=== PATIENT | female | born 1990 | race Two or more races ===

== ENCOUNTER → 2020-03-15 | Outpatient (CLI) | payer SELFPAY | LOC: M LABSMTC 11:38 | PROVIDERS: ATTEND Pediatrics | DX: Z20.828 Contact with and (suspected) exposure to other viral communicable diseases (principal) ==

== ENCOUNTER 2020-08-03 06:38 | Emergency (ER) | payer OTHER, SELFPAY ==
[~2020-08-03] VITALS: Ht 175.3 cm; Wt 88.1 kg
[2020-08-03] MEDS ORDERED: NS 1,000 ML IV ONE (07:25)
[2020-08-03 08:11] LABS: BASO % 0.9 % (0.0-1.0); EOS # 0.1 10^3/uL (0.0-0.5); EOS % 2.8 % (0.0-3.0); HEMOGLOBIN 12.3 g/dl (12.0-15.5); LYMPH # 1.1 10^3/uL (1.5-5.0); LYMPH % 23.6 % (24.0-44.0); MEAN CORPUSCULAR HGB CONC 31.5 g/dl (32.0-36.5); MONO # 0.5 10^3/uL (0.0-0.8); MONO % 11.5 % (2.0-8.0); NEUTROPHILS # 2.9 10^3/uL (1.5-8.5); PLATELET COUNT, AUTOMATED 353 10^3/uL (150-450); RED BLOOD COUNT 4.24 10^6/uL (4.00-5.40); WHITE BLOOD COUNT 4.7 10^3/uL (4.0-10.0)
[2020-08-03 08:41] LABS: ALBUMIN 3.6 GM/DL (3.2-5.2); ALT/SGPT 18 U/L (12-78); BILIRUBIN,DIRECT 0.2 MG/DL (0.0-0.2); BILIRUBIN,TOTAL 0.4 MG/DL (0.2-1.0); BLOOD UREA NITROGEN 14 MG/DL (7-18); CALCIUM LEVEL 8.9 MG/DL (8.5-10.1); CARBON DIOXIDE LEVEL 31 MEQ/L (21-32); CHLORIDE LEVEL 107 MEQ/L (98-107); CREATININE FOR GFR 1.05 MG/DL (0.55-1.30); GLOMERULAR FILTRATION RATE > 60.0 (>60); GLUCOSE, FASTING 84 MG/DL (70-100); LIPASE 75 U/L (73-393); POTASSIUM SERUM 4.7 MEQ/L (3.5-5.1); SODIUM LEVEL 141 MEQ/L (136-145)
--- NOTE | 2020-08-03 09:00 | REP ---
INDICATION: pelvic pain, D. COMPARISON: None. TECHNIQUE: Transabdominal and transvaginal scanning were performed. FINDINGS: Uterine dimensions are normal at 8.1 x 3.5 x 5.1 cm. Endometrial echo is 0.6 cm thick and centrally placed. No free fluid is seen in the cul-de-sac. Visualized bladder chavira are smooth. No focal uterine mass or free fluid is seen. The right ovary has dimensions of 3.2 x 2.0 x 2.2 cm. It's Doppler flow is normal with a resistive index of 0.60. There is a 1.6 cm follicle in the right ovary. The left ovary dimensions are normal as well at 3.0 x 1.9 x 2.0 cm. It's Doppler flow was normal with resistive index of 0.78. There is a 1.4 cm follicle lung in the left ovary. IMPRESSION: Normal pelvic sonography. <Electronically signed by Crow Bowles > 08/03/20 [id number]
[2020-08-03 10:00] LABS: HCG, SERUM QUANTITATIVE 41 MIU/ML
[2020-08-03] MEDS ORDERED: ISOVUE-370 76% 100ML VIAL As Ordered ONE (10:16)
--- NOTE | 2020-08-03 10:38 | REP ---
INDICATION: r/o appendicitis. COMPARISON: None TECHNIQUE: Axial contrast-enhanced images from the lung bases to the pubic symphysis using 100 cc Isovue 370 intravenous contrast material. . This CT examination was performed using the following dose reduction techniques: Automated exposure control, adjustment of mA and/or kv according to the patient's size, and the use of iterative reconstruction technique. FINDINGS: Liver, spleen, pancreas, gallbladder, bilateral adrenal glands and kidneys are normal. Evaluation of the enteric system is limited due to significant fecal stasis and paucity of intraperitoneal fat as well as lack of oral contrast material. Normal terminal ileum and presumed appendix are suggested in the right lower quadrant without inflammatory changes to suggest acute appendicitis.. Pelvis demonstrates normal bladder and age-appropriate uterus/adnexa. No ascites. No free air. No intraperitoneal or retroperitoneal adenopathy. Abdominal aorta and vasculature appear normal. Musculoskeletal structures are intact and without acute osseous abnormality. IMPRESSION: Limited examination. No obvious evidence for acute appendicitis. Moderate to significant fecal stasis. <Electronically signed by Hernandez Mcmullen > 08/03/20 [id number]
[2020-08-03] MEDS ORDERED: COLA100C5 PO (10:50)
[2020-08-03 11:01] VITALS: BP 114/62
[2020-08-04] MEDS ORDERED: THERTAB52 PO (20:21)
== END 2020-08-03 11:03 | disposition home or self-care (01) ==
LOC: M ED 06:38
DX: R10.2 Pelvic and perineal pain (principal); R30.0 Dysuria; K59.00 Constipation, unspecified; Z87.59 Personal history of other complications of pregnancy, childbirth and the puerperium; Z79.899 Other long term (current) drug therapy
CPT/HCPCS: 74177; 76856; 80048; 80076; 81001; 83690; 84702; 85025; 87210; 87490; 87590; 87661; 96360; 99284; Q9967

== ENCOUNTER 2020-08-04 14:23 | Inpatient (IN) | payer OTHER ==
[~2020-08-04] VITALS: Ht 175.3 cm; Wt 87.6 kg
[~2020-08-04 14:23] MED LIST: COLA100C5 PO
[2020-08-04] MEDS ORDERED: NS 1,000 ML IV ONE (14:45)
[2020-08-04 15:04] LABS: HEMATOCRIT 39.1 % (36.0-47.0); HEMOGLOBIN 13.4 g/dl (12.0-15.5); MEAN CORPUSCULAR HEMOGLOBIN 31.2 pg (27.0-33.0); MEAN CORPUSCULAR HGB CONC 34.3 g/dl (32.0-36.5); MEAN CORPUSCULAR VOLUME 90.9 fl (80.0-96.0); PLATELET COUNT, AUTOMATED 377 10^3/uL (150-450); WHITE BLOOD COUNT 5.9 10^3/uL (4.0-10.0)
[2020-08-04 15:22] LABS: HCG, SERUM QUALITATIVE POSITIVE (NEGATIVE)
[2020-08-04 15:33] LABS: AMPHETAMINES LEVEL URINE NEGATIVE (NEGATIVE); BARBITURATES URINE NEGATIVE (NEGATIVE); BENZODIAZEPINES URINE NEGATIVE (NEGATIVE); CANNABINOIDS URINE NEGATIVE (NEGATIVE); COCAINE METABOLITE URINE NEGATIVE (NEGATIVE); METHADONE URINE NEGATIVE (NEGATIVE); OPIATES URINE NEGATIVE (NEGATIVE); PHENCYCLIDINE URINE NEGATIVE (NEGATIVE)
[2020-08-04 15:37] LABS: ACETAMINOPHEN LEVEL < 2.0 UG/ML (10.0-30.0); ALBUMIN 3.7 GM/DL (3.2-5.2); ALT/SGPT 15 U/L (12-78); BILIRUBIN,DIRECT 0.2 MG/DL (0.0-0.2); BILIRUBIN,TOTAL 0.5 MG/DL (0.2-1.0); BLOOD UREA NITROGEN 11 MG/DL (7-18); CALCIUM LEVEL 9.4 MG/DL (8.5-10.1); CARBON DIOXIDE LEVEL 26 MEQ/L (21-32); CHLORIDE LEVEL 108 MEQ/L (98-107); CREATININE FOR GFR 1.04 MG/DL (0.55-1.30); ETHYL ALCOHOL (ETHANOL) 0.098 % (0.000-0.010); GLOMERULAR FILTRATION RATE > 60.0 (>60); GLUCOSE, FASTING 97 MG/DL (70-100); POTASSIUM SERUM 3.7 MEQ/L (3.5-5.1); SALICYLATE LEVEL < 1.7 MG/DL (5.0-30.0); SODIUM LEVEL 142 MEQ/L (136-145)
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
[2020-08-04] MEDS ORDERED: ACETAMINOPHEN 325 MG TAB PO ONE (16:30)
[2020-08-04] MEDS ORDERED: THERTAB52 PO (20:21)
[2020-08-04 20:48] LABS: RSV AMPLIFICATION NEGATIVE (NEGATIVE)
[2020-08-04] MEDS ORDERED: MOM 30ML SUSPENSION UDC PO PRN (20:55)
[2020-08-04] MEDS ORDERED: ACETAMINOPHEN TAB 650MG DOSE (2X325MG) PO PRN (20:55)
[2020-08-04] MEDS ORDERED: OLANZapine ORAL DISINTEGRATING TAB 5MG PO PRN (20:55)
[2020-08-04] MEDS ORDERED: MAALOX 30 ML SUSP *UDC PO PRN (20:55)
[2020-08-04] MEDS ORDERED: traZODone 50 MG TAB PO PRN (20:55)
[2020-08-04 23:13] VITALS: BP 113/59
[2020-08-05 06:11] VITALS: BP 113/55
[2020-08-05] MEDS ORDERED: INFLUENZA QUADRIVALENT PF VACCINE 0.5ML SYRINGE IM ONE (09:00)
[2020-08-05] MEDS ORDERED: SERTRALINE HCL 50 MG TAB PO ONE (09:00)
--- NOTE | 2020-08-05 09:59 | ECGEPIP ---
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
[2020-08-06 06:55] VITALS: BP 136/91
[2020-08-06] MEDS: SERTRALINE HCL 50 MG TAB PO SCH (08:32)
[2020-08-06] MEDS ORDERED: SERT50TA29 PO (11:22)
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
[2020-08-06 16:15] VITALS: BP 119/63
[2020-08-07 06:46] VITALS: BP 112/59
[2020-08-07] MEDS: SERTRALINE HCL 50 MG TAB PO SCH (08:42)
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
== END 2020-08-07 12:25 | disposition home or self-care (01) | DRG 881 ==
LOC: M ED 14:23 → M ED INP 20:54 → M PSY 23:15
PROVIDERS: ADMIT Psychiatry & Neurology Psychiatry; ATTEND Psychiatry & Neurology Psychiatry
DX: F32.9 Major depressive disorder, single episode, unspecified (principal); R45.851 Suicidal ideations; F43.23 Adjustment disorder with mixed anxiety and depressed mood; F10.10 Alcohol abuse, uncomplicated; T38.892A Poisoning by other hormones and synthetic substitutes, intentional self-harm, initial encounter; Z91.82 Personal history of military deployment; Z91.5 Personal history of self-harm; Z91.410 Personal history of adult physical and sexual abuse; Z20.822 Contact with and (suspected) exposure to COVID-19; Z63.8 Other specified problems related to primary support group; Z81.1 Family history of alcohol abuse and dependence

== ENCOUNTER 2021-03-22 13:21 | Emergency (ER) | payer OTHER ==
[~2021-03-22] VITALS: Ht 172.7 cm; Wt 94.3 kg
[~2021-03-22 13:21] MED LIST changes: +SERT50TA29 PO; +THERTAB52 PO
[2021-03-22] MEDS ORDERED: MUCI600T31 PO (13:57)
[2021-03-22] MEDS ORDERED: IBUP200C25 PO (13:57)
[2021-03-22] MEDS ORDERED: LUNE2TAB23 PO (13:58)
[2021-03-22] MEDS ORDERED: dexameTHASONE 4 MG/ML 1ML VIAL (J1100 PER 1MG) PO ONE (14:25)
--- NOTE | 2021-03-22 14:43 | REP ---
INDICATION: productive cough, hx of pneumonia COMPARISON: None. TECHNIQUE: PA and lateral. FINDINGS: The mediastinum and cardiac silhouette are normal. The lung mullen are clear and without acute consolidation, effusion, or pneumothorax. The skeletal structures are intact and normal. IMPRESSION: No acute cardiopulmonary process. <Electronically signed by Hernandez Mcmullen > 03/22/21 [id number]
[2021-03-22] MEDS ORDERED: TESS100C PO (14:56)
[2021-03-22 15:27] VITALS: BP 119/72
== END 2021-03-22 15:32 | disposition home or self-care (01) ==
LOC: M ED 13:21
DX: J10.89 Influenza due to other identified influenza virus with other manifestations (principal); J20.9 Acute bronchitis, unspecified
CPT/HCPCS: 71046; 99283; J1100